=== PATIENT | female | born 1950 | race Caucasian/White ===

== ENCOUNTER 2016-06-15 17:01 | Inpatient (IN) | payer OTHER ==
[~2016-06-15] VITALS: Ht 154.9 cm; Wt 66.9 kg
[2016-06-15 17:39] LABS: HEMATOCRIT 38.1 % (36.0-46.0); MCH 29.9 PG (29.0-34.0); MCHC 34.9 G/DL (30.0-36.0); MCV 85.6 FL (83-99); MEAN PLAT.VOLUME 9.7 uM^3 (9.5-12.4); PLATELET COUNT 378 K/uL (156-360); RBC DIS.WIDTH-CV 14.7 % (11.8-14.6); RED BLOOD COUNT 4.45 M/uL (3.80-5.20)
[2016-06-15 17:47] LABS: CHLORIDE 90 mEq/L (99-109); POTASSIUM 4.7 mEq/L (3.7-5.4); SODIUM 126 mEq/L (136-147)
[2016-06-15 17:49] LABS: GLUCOSE 109 mg/dL (70-99)
[2016-06-15 17:50] LABS: INTER. NORMALIZED RATIO 1.3; PROTHROMBIN TIME 13.8 (9.2-11.2); PTT 31.4 (25-32)
[2016-06-15 17:51] LABS: ANION GAP 12 MEQ/L (2-14); TOTAL BILIRUBIN 0.8 mg/dL (0.0-1.0)
[2016-06-15 17:53] LABS: ALKALINE PHOSPHATASE 87 IU/L (3-129)
[2016-06-15 17:54] LABS: UREA NITROGEN (BUN) 25 mg/dL (9-23)
[2016-06-15 18:04] LABS: GFR ESTIMATE (CALCULATED) > 59 mL/min/
[2016-06-15 18:20] LABS: EOSINOPHIL (%) 0.3 % (0-5); EOSINOPHIL COUNT 0.1 K/uL (0-0.3); HEMATOLOGY COMMENT 1 SMEAR COMPATIBLE; IMMATURE GRANULOCYTE (%) 0.3 % (0.0-0.7); IMMATURE GRANULOCYTE COUNT 0.7 K/uL; LYMPHOCYTE COUNT 0.9 K/uL (1.0-2.8); MONOCYTE (%) 5.2 % (3-12); MONOCYTE COUNT 1.2 K/uL (0-0.8); NEUTROPHIL (%) 90.1 % (45-76); NEUTROPHIL COUNT 20.7 K/uL (1.8-6.4); PLAT.SUFFICIENCY NORMAL
[2016-06-15] MEDS ORDERED: LOVENOX80 MG/0.8 SC (20:43)
[2016-06-15] MEDS ORDERED: VITAMIN D5000 UNI1 PO (20:43)
[2016-06-15] MEDS ORDERED: ZANTAC75 M1 PO (20:44)
[2016-06-15] MEDS ORDERED: GAS-X80 MG PO (20:46)
[2016-06-15] MEDS ORDERED: MIRALAX17 GM PO (20:47)
[2016-06-16 03:10] VITALS: BP 141/67
[2016-06-16] MEDS ORDERED: PROBIOTIC1 EAC1 PO (03:42)
[2016-06-16 05:59] LABS: ADD MIUA? YES; BILIRUBIN NEGATIVE; BLOOD NEGATIVE; COLOR AMBER ((YELLOW)); GLUCOSE (STRIP) NEGATIVE; KETONES 20; LEUKOCYTES TRACE; NITRITE NEGATIVE; PROTEIN (STRIP) 30
[2016-06-16 06:09] LABS: BACTERIA 1+ /HPF; CALCIUM OXALATE CRYSTALS 4+ /HPF; EPITHELIAL CELLS 1+ /HPF; HYALINE CASTS 15-20 /LPF; MUCUS 4+ /LPF; UCUL ADDED? NO
[2016-06-16 07:04] LABS: SPECIFIC GRAVITY 1.052 (1.000-1.030)
[2016-06-16 07:47] VITALS: BP 143/74
[2016-06-16 09:25] LABS: HEMATOCRIT 37.9 % (36.0-46.0); MCV 86.7 FL (83-99)
[2016-06-16 12:13] VITALS: BP 135/77
[2016-06-16 17:32] VITALS: BP 126/69
[2016-06-16 18:11] LABS: HEMATOCRIT 35.9 % (36.0-46.0); MCH 29.8 PG (29.0-34.0); MCV 87.6 FL (83-99); RBC DIS.WIDTH-CV 14.9 % (11.8-14.6); RBC DIS.WIDTH-SD 47.4 % (39-53); WHITE BLOOD COUNT 25.5 K/uL (4.1-10.2)
[2016-06-16 18:29] LABS: ANION GAP 14 MEQ/L (2-14); CHLORIDE 91 MEQ/L (99-109); POTASSIUM 4.2 MEQ/L (3.7-5.4); SAMPLE HEMOLYSIS CHECK 0; SAMPLE ICTERIC CHECK 0; SAMPLE LIPEMIA CHECK 0; SODIUM 125 MEQ/L (136-147); TOTAL BILIRUBIN 0.6 MG/DL (0.0-1.0)
[2016-06-16 18:35] LABS: ALKALINE PHOSPHATASE 73 IU/L (3-129); GFR ESTIMATE (CALCULATED) > 59 mL/min/; GLUCOSE 91 mg/dL (70-99); UREA NITROGEN (BUN) 26 mg/dL (9-23)
[2016-06-16 19:00] VITALS: BP 126/58
[2016-06-16 20:15] LABS: MEAN PLAT.VOLUME 10.4 uM^3 (9.5-12.4); PLATELET COUNT 174 K/uL (156-360)
[2016-06-16 23:52] VITALS: BP 125/72
[2016-06-17] VITALS: BP 130/78
[2016-06-17 04:42] VITALS: BP 125/83
[2016-06-17 06:54] LABS: HEMATOCRIT 37.5 % (36.0-46.0); MCH 29.3 PG (29.0-34.0); MCHC 33.6 G/DL (30.0-36.0); MCV 87.2 FL (83-99); MEAN PLAT.VOLUME 10.5 uM^3 (9.5-12.4); PLATELET COUNT 149 K/uL (156-360); RBC DIS.WIDTH-CV 15.2 % (11.8-14.6); RBC DIS.WIDTH-SD 48.6 % (39-53)
[2016-06-17 07:03] LABS: EOSINOPHIL (%) 0.2 % (0-5); EOSINOPHIL COUNT 0.1 K/uL (0-0.3); IMMATURE GRANULOCYTE (%) 0.4 % (0.0-0.7); IMMATURE GRANULOCYTE COUNT 0.1 K/uL; LYMPHOCYTE COUNT 1.1 K/uL (1.0-2.8); MONOCYTE (%) 3.2 % (3-12); MONOCYTE COUNT 0.9 K/uL (0-0.8); NEUTROPHIL (%) 92.2 % (45-76); NEUTROPHIL COUNT 26.7 K/uL (1.8-6.4)
[2016-06-17 07:18] LABS: ANION GAP 12 MEQ/L (2-14); CHLORIDE 91 MEQ/L (99-109); GFR ESTIMATE (CALCULATED) > 59 mL/min/; GLUCOSE 101 mg/dL (70-99); POTASSIUM 4.2 MEQ/L (3.7-5.4); SAMPLE HEMOLYSIS CHECK 0; SAMPLE ICTERIC CHECK 0; SAMPLE LIPEMIA CHECK 0; SODIUM 125 MEQ/L (136-147); UREA NITROGEN (BUN) 23 mg/dL (9-23)
[2016-06-17 09:15] VITALS: BP 114/55
[2016-06-17 11:49] VITALS: BP 129/69
[2016-06-17 15:31] VITALS: BP 114/57
[2016-06-17 19:10] VITALS: BP 132/58
[2016-06-18] VITALS (7 sets, daily range): BP systolic 115–143; BP diastolic 56–73
[2016-06-18 07:33] LABS: HEMATOCRIT 38.5 % (36.0-46.0); MCH 28.7 PG (29.0-34.0); MCHC 33.2 G/DL (30.0-36.0); MCV 86.3 FL (83-99); MEAN PLAT.VOLUME 11.6 uM^3 (9.5-12.4); PLATELET COUNT 121 K/uL (156-360); RBC DIS.WIDTH-SD 46.9 % (39-53); RED BLOOD COUNT 4.46 M/uL (3.80-5.20)
[2016-06-18 08:03] LABS: ANION GAP 10 MEQ/L (2-14); CHLORIDE 90 MEQ/L (99-109); GFR ESTIMATE (CALCULATED) > 59 mL/min/; GLUCOSE 105 mg/dL (70-99); POTASSIUM 4.2 MEQ/L (3.7-5.4); SAMPLE HEMOLYSIS CHECK 0; SAMPLE ICTERIC CHECK 0; SAMPLE LIPEMIA CHECK 0; SODIUM 125 MEQ/L (136-147); UREA NITROGEN (BUN) 25 mg/dL (9-23)
[2016-06-19 04:44] VITALS: BP 127/56
[2016-06-19 07:22] LABS: INTER. NORMALIZED RATIO 1.4; PTT 33.4 (25-32)
[2016-06-19 07:25] LABS: HEMATOCRIT 39.3 % (36.0-46.0); MCHC 32.3 G/DL (30.0-36.0); MCV 86.8 FL (83-99); MEAN PLAT.VOLUME 11.5 uM^3 (9.5-12.4); PLATELET COUNT 107 K/uL (156-360); RBC DIS.WIDTH-CV 15.1 % (11.8-14.6); RED BLOOD COUNT 4.53 M/uL (3.80-5.20); WHITE BLOOD COUNT 28.9 K/uL (4.1-10.2)
[2016-06-19 07:42] LABS: ANION GAP 12 MEQ/L (2-14); CHLORIDE 90 MEQ/L (99-109); GFR ESTIMATE (CALCULATED) > 59 mL/min/; GLUCOSE 88 mg/dL (70-99); MAGNESIUM 2.5 mg/dl (1.3-2.7); SAMPLE HEMOLYSIS CHECK 0; SAMPLE ICTERIC CHECK 0; SAMPLE LIPEMIA CHECK 0; SODIUM 126 MEQ/L (136-147); UREA NITROGEN (BUN) 25 mg/dL (9-23)
[2016-06-19 07:47] LABS: EOSINOPHIL (%) 0.6 % (0-5); EOSINOPHIL COUNT 0.2 K/uL (0-0.3); IMMATURE GRANULOCYTE (%) 0.5 % (0.0-0.7); IMMATURE GRANULOCYTE COUNT 0.1 K/uL; MONOCYTE COUNT 0.9 K/uL (0-0.8); NEUTROPHIL (%) 92.2 % (45-76); NEUTROPHIL COUNT 26.6 K/uL (1.8-6.4)
[2016-06-19 08:00] VITALS: BP 130/57
[2016-06-19 09:38] VITALS: BP 144/64
[2016-06-19 11:53] LABS: HPCA INDEX 0.08
[2016-06-19 14:23] VITALS: BP 129/69
[2016-06-19 16:14] VITALS: BP 121/65
[2016-06-19 23:31] VITALS: BP 120/56
[2016-06-20 04:15] LABS: HEMATOCRIT 35.5 % (36.0-46.0); MCH 29.5 PG (29.0-34.0); MCHC 34.4 G/DL (30.0-36.0); RED BLOOD COUNT 4.13 M/uL (3.80-5.20)
[2016-06-20 04:19] LABS: WHITE BLOOD COUNT 31.2 K/uL (4.1-10.2)
[2016-06-20 04:24] LABS: CHLORIDE 96 mEq/L (99-109); POTASSIUM 4.1 mEq/L (3.7-5.4); SODIUM 128 mEq/L (136-147)
[2016-06-20 04:26] LABS: GLUCOSE 80 mg/dL (70-99)
[2016-06-20 04:28] LABS: ANION GAP 13 MEQ/L (2-14); TOTAL BILIRUBIN 0.8 mg/dL (0.0-1.0)
[2016-06-20 04:30] LABS: ALKALINE PHOSPHATASE 90 IU/L (3-129); GFR ESTIMATE (CALCULATED) > 59 mL/min/
[2016-06-20 04:31] LABS: UREA NITROGEN (BUN) 28 mg/dL (9-23)
[2016-06-20 05:13] LABS: MEAN PLAT.VOLUME 11.7 uM^3 (9.5-12.4); PLATELET COUNT 48 K/uL (156-360)
[2016-06-20 06:33] LABS: ANION GAP 15 MEQ/L (2-14); CHLORIDE 93 MEQ/L (99-109); GFR ESTIMATE (CALCULATED) > 59 mL/min/; GLUCOSE 98 mg/dL (70-99); POTASSIUM 3.9 MEQ/L (3.7-5.4); SAMPLE HEMOLYSIS CHECK 0; SAMPLE ICTERIC CHECK 0; SAMPLE LIPEMIA CHECK 0; SODIUM 128 MEQ/L (136-147); UREA NITROGEN (BUN) 29 mg/dL (9-23)
[2016-06-20 07:05] LABS: HEMATOCRIT 38.7 % (36.0-46.0); MCH 29.1 PG (29.0-34.0); MCHC 33.3 G/DL (30.0-36.0); MCV 87.2 FL (83-99); RBC DIS.WIDTH-CV 15.2 % (11.8-14.6); RBC DIS.WIDTH-SD 48.8 % (39-53); RED BLOOD COUNT 4.44 M/uL (3.80-5.20)
[2016-06-20 07:11] LABS: WHITE BLOOD COUNT 30.5 K/uL (4.1-10.2)
[2016-06-20 07:13] LABS: PLATELET COUNT 35 K/uL (156-360)
[2016-06-20 08:23] VITALS: BP 118/66
[2016-06-20 11:27] VITALS: BP 99/58
[2016-06-20 16:23] VITALS: BP 108/58
[2016-06-21] VITALS (8 sets, daily range): BP systolic 100–131; BP diastolic 55–74
[2016-06-21 10:40] LABS: ANION GAP 13 MEQ/L (2-14); CHLORIDE 95 MEQ/L (99-109); POTASSIUM 3.7 MEQ/L (3.7-5.4); SAMPLE HEMOLYSIS CHECK 0; SAMPLE ICTERIC CHECK 0; SAMPLE LIPEMIA CHECK 0; SODIUM 129 MEQ/L (136-147); TOTAL BILIRUBIN 0.7 MG/DL (0.0-1.0)
[2016-06-21 10:44] LABS: INTER. NORMALIZED RATIO 1.6; PTT 39.4 (25-32)
[2016-06-21 10:46] LABS: ALKALINE PHOSPHATASE 87 IU/L (3-129); GFR ESTIMATE (CALCULATED) 53 mL/min/; GLUCOSE 118 mg/dL (70-99); UREA NITROGEN (BUN) 36 mg/dL (9-23)
[2016-06-21 11:02] LABS: ABS NEUTROPHIL COUNT 37.16; ANISOCYTOSIS 1+; EOSINOPHIL (%) 0.2 % (0-5); EOSINOPHIL ABS CT 0.19; EOSINOPHIL COUNT 0.1 K/uL (0-0.3); EOSINOPHILS 0.5 % (0-5.0); HEMATOCRIT 37.4 % (36.0-46.0); IMMATURE GRANULOCYTE (%) 1.2 % (0.0-0.7); IMMATURE GRANULOCYTE COUNT 0.5 K/uL; LYMPHOCYTE COUNT 1.8 K/uL (1.0-2.8); LYMPHOCYTES 1.5 % (15.0-45.0); MACROCYTES OCC; MCH 30.2 PG (29.0-34.0); MCHC 34.5 G/DL (30.0-36.0); MCV 87.6 FL (83-99); METAMYELOCYTES 0.5 %; MONOCYTE (%) 1.5 % (3-12); MONOCYTE COUNT 0.6 K/uL (0-0.8); NEUTROPHIL (%) 92.2 % (45-76); NEUTROPHIL COUNT 35.5 K/uL (1.8-6.4); PLAT.SUFFICIENCY DECREASED; POLYCHROMASIA RARE; RBC DIS.WIDTH-CV 15.9 % (11.8-14.6); RBC DIS.WIDTH-SD 50.4 % (39-53); RED BLOOD COUNT 4.27 M/uL (3.80-5.20); SEG.NEUTROPHILS 86.5 % (46.0-76.0); SPHEROCYTES 1+
[2016-06-21 11:03] LABS: PLATELET COUNT 18 K/uL (156-360); WHITE BLOOD COUNT 38.5 K/uL (4.1-10.2)
[2016-06-22 02:57] VITALS: BP 131/74; BP 146/65
[2016-06-22 06:35] LABS: ALKALINE PHOSPHATASE 90 IU/L (3-129); ANION GAP 12 MEQ/L (2-14); CHLORIDE 97 MEQ/L (99-109); GFR ESTIMATE (CALCULATED) > 59 mL/min/; GLUCOSE 117 mg/dL (70-99); POTASSIUM 3.9 MEQ/L (3.7-5.4); SAMPLE HEMOLYSIS CHECK 0; SAMPLE ICTERIC CHECK 0; SAMPLE LIPEMIA CHECK 0; SODIUM 130 MEQ/L (136-147); TOTAL BILIRUBIN 0.7 MG/DL (0.0-1.0); UREA NITROGEN (BUN) 44 mg/dL (9-23)
[2016-06-22 06:40] LABS: EOSINOPHIL (%) 0 % (0-5); HEMATOCRIT 36.4 % (36.0-46.0); IMMATURE GRANULOCYTE (%) 0.7 % (0.0-0.7); IMMATURE GRANULOCYTE COUNT 0.3 K/uL; LYMPHOCYTE COUNT 1.6 K/uL (1.0-2.8); MCH 28.8 PG (29.0-34.0); MCHC 32.7 G/DL (30.0-36.0); MCV 88.1 FL (83-99); MONOCYTE (%) 1.6 % (3-12); MONOCYTE COUNT 0.7 K/uL (0-0.8); NEUTROPHIL (%) 93.9 % (45-76); NEUTROPHIL COUNT 39.2 K/uL (1.8-6.4); RBC DIS.WIDTH-CV 15.9 % (11.8-14.6); RBC DIS.WIDTH-SD 50.8 % (39-53); RED BLOOD COUNT 4.13 M/uL (3.80-5.20)
[2016-06-22 06:41] LABS: WHITE BLOOD COUNT 41.8 K/uL (4.1-10.2)
[2016-06-22 07:15] LABS: HEMATOLOGY COMMENT 1 SMEAR COMPATIBLE; PLAT.SUFFICIENCY DECREASED; PLATELET COUNT 9 K/uL (156-360)
[2016-06-22 07:58] VITALS: BP 130/56
[2016-06-22 14:18] LABS: Heparin Induced Plt Ab Negative (Negative)
[2016-06-22 19:56] VITALS: BP 109/59
[2016-06-22 23:26] VITALS: BP 126/64
[2016-06-23 04:26] VITALS: BP 121/63
[2016-06-23 07:20] LABS: EOSINOPHIL (%) 0.4 % (0-5); EOSINOPHIL COUNT 0.2 K/uL (0-0.3); IMMATURE GRANULOCYTE (%) 0.8 % (0.0-0.7); IMMATURE GRANULOCYTE COUNT 0.3 K/uL; LYMPHOCYTE COUNT 0.6 K/uL (1.0-2.8); MONOCYTE (%) 2.6 % (3-12); NEUTROPHIL (%) 94.6 % (45-76); NEUTROPHIL COUNT 35.4 K/uL (1.8-6.4)
[2016-06-23 07:23] LABS: ALKALINE PHOSPHATASE 84 IU/L (3-129); ANION GAP 14 MEQ/L (2-14); CHLORIDE 97 MEQ/L (99-109); GFR ESTIMATE (CALCULATED) 53 mL/min/; GLUCOSE 100 mg/dL (70-99); POTASSIUM 3.6 MEQ/L (3.7-5.4); SAMPLE HEMOLYSIS CHECK 0; SAMPLE ICTERIC CHECK 0; SAMPLE LIPEMIA CHECK 0; SODIUM 130 MEQ/L (136-147); TOTAL BILIRUBIN 0.8 MG/DL (0.0-1.0); UREA NITROGEN (BUN) 54 mg/dL (9-23)
[2016-06-23 08:10] LABS: HEMATOCRIT 33.7 % (36.0-46.0); HEMATOLOGY COMMENT 1 SMEAR COMPATIBLE; MCH 30.1 PG (29.0-34.0); MCHC 33.8 G/DL (30.0-36.0); MCV 88.9 FL (83-99); PLAT.SUFFICIENCY DECREASED; RBC DIS.WIDTH-CV 16.4 % (11.8-14.6); RBC DIS.WIDTH-SD 52.3 % (39-53); RED BLOOD COUNT 3.79 M/uL (3.80-5.20); USER ID MCB
[2016-06-23 08:12] LABS: PLATELET COUNT 5 K/uL (156-360); WHITE BLOOD COUNT 37.4 K/uL (4.1-10.2)
[2016-06-23 09:17] VITALS: BP 113/63
[2016-06-23 16:23] LABS: UFH SRA Result Negative (Negative)
== END 2016-06-24 02:13 | DRG 872 ==
LOC: EME 17:01 → 4EAST 06-16 01:48 → EDOF 06-16 01:48 → 5EAST 06-16 01:48 → 4EAST 06-16 03:05 → 2EAST 06-19 07:28 → 5EAST 06-19 09:17
PROVIDERS: Hospitalist; Internal Medicine; Internal Medicine Gastroenterology; Internal Medicine Hematology & Oncology; Internal Medicine Nephrology; Nurse Practitioner Adult Health; Physician Assistant
DX: A41.9 Sepsis, unspecified organism (principal); E22.2 Syndrome of inappropriate secretion of antidiuretic hormone; C78.6 Secondary malignant neoplasm of retroperitoneum and peritoneum; R18.0 Malignant ascites; J98.11 Atelectasis; K56.69 Other intestinal obstruction; C78.4 Secondary malignant neoplasm of small intestine; C78.89 Secondary malignant neoplasm of other digestive organs; D69.6 Thrombocytopenia, unspecified; Z66 Do not resuscitate; Z51.5 Encounter for palliative care; M62.81 Muscle weakness (generalized); K76.0 Fatty (change of) liver, not elsewhere classified; E86.0 Dehydration; K74.60 Unspecified cirrhosis of liver; Z88.0 Allergy status to penicillin; Z86.718 Personal history of other venous thrombosis and embolism; Z87.01 Personal history of pneumonia (recurrent); Z86.711 Personal history of pulmonary embolism
CPT/HCPCS: 71010; 71020; 74000; 74177; 74270; 74360; 80048; 80053; 81003; 82533 91; 83605; 83735; 83880; 83930; 83935; 84100; 84300; 84550; 85014; 85018; 85025; 85027; 85384; 85610; 85730; 86022 90; 86803; 86850; 86900; 86901; 87040; 87070; 87205; 87340; 87493; 88108; 88305; 88342 TC; 93005; 94799; 99281; 99285; C1751; C9113; J0330; J0640; J0692; J1100; J1650; J1652; J1940; J2060; J2250; J2270; J2405; J2469; J3010; J3370; J7030; J7050; J7060; J9190; J9263